=== PATIENT | female | born 1945 | race Caucasian/White ===

== ENCOUNTER 2024-05-17 10:08 | Observation (INO) | payer OTHER ==
[~2024-05-17] VITALS: Ht 175.3 cm; Wt 81.6 kg
[2024-05-17 10:13] VITALS: BP 148/85; PULSE 86; RESP 17; TEMP 97.8; O2SAT 99
[2024-05-17 11:06] LABS: BASOPHILS # (AUTO) 0.1 K/uL (0.00-0.22); BASOPHILS % (AUTO) 0.7 % (0.0-2.0); EOSINOPHILS # (AUTO) 0.1 K/uL (0-0.4); HEMATOCRIT 47.5 % (36-48); LYMPHOCYTES # (AUTO) 2.4 K/uL (2.5-16.5); LYMPHOCYTES % (AUTO) 27.6 % (20.5-51.1); MEAN CORPUSCULAR HEMOGLOBIN 31 pg (27-31); MEAN CORPUSCULAR HGB CONC 34 g/dL (33-37); MEAN CORPUSCULAR VOLUME 91.9 fL (80-94); MONOCYTES # (AUTO) 0.6 K/uL (0.8-1.0); MONOCYTES % (AUTO) 6.6 % (1.7-9.3); NEUTROPHILS # (AUTO) 5.6 K/uL (1.8-7.7); NEUTROPHILS % (AUTO) 64.1 % (42.2-75.2); PLATELET COUNT (AUTO) 225 K/uL (140-450); RED BLOOD CELL COUNT(AUTO) 5.17 MIL/uL (4.20-5.40); RED CELL DISTRIBUTION WIDTH 14.3 % (11.6-13.7); WHITE BLOOD COUNT (AUTO) 8.7 K/uL (4.8-10.8)
[2024-05-17] MEDS: NACL 0.9% 1,000 ML IV SCH ×2 (11:12→16:45)
[2024-05-17] MEDS: LEVOFLOXACIN 500 MG/D5W PREMIX 100 ML IV ONE (11:16)
[2024-05-17 11:23] LABS: BILIRUBIN,URINE NEGATIVE (NEGATIVE); BLOOD, URINE NEGATIVE (NEGATIVE); COLOR,URINE YELLOW (YELLOW); LEUKOCYTE ESTERASE ,URINE 1+ (NEGATIVE); NITRITE, URINE NEGATIVE (NEGATIVE); PROTEIN,URINE NEGATIVE (NEGATIVE); UGLUCOSE 3+ (NEGATIVE); UROBILINOGEN,URINE 0.2 EU/dL (0.2 - 1)
[2024-05-17 11:25] LABS: ANION GAP 14.3 (8-16); CALCIUM 9.7 mg/dL (8.5-10.1); CARBON DIOXIDE 26.8 mmol/L (21-32); CHLORIDE 99 mmol/L (98-107); GLUCOSE 143 mg/dL (74-106); POTASSIUM 4.1 mmol/L (3.5-5.1); SODIUM SERUM 136 mmol/L (136-145); UREA NITROGEN, BLOOD 24 mg/dL (7-18)
[2024-05-17 11:39] LABS: LACTIC ACID 1.7 mmol/L (0.4-2.0)
[2024-05-17 11:51] LABS: BACTERIA,URINE FEW /HPF (None Seen); RBC,URINE 0-5 /HPF (0-5)
[2024-05-17 11:52] LABS: APPEARANCE,URINE SLIGHTLY HAZY (CLEAR); SQUAMOUS EPITHELIAL CELL,UR 4-10 (MOD) /LPF (0-3 (FEW))
[2024-05-17] MEDS ORDERED: LISI1TAB PO (12:41)
[2024-05-17] MEDS ORDERED: ATOR20TA PO (12:41)
[2024-05-17] MEDS ORDERED: METF-346 PO (12:42)
[2024-05-17] MEDS ORDERED: EMPA25TA PO (12:43)
[2024-05-17] MEDS ORDERED: METO50TA99 PO (12:46)
[2024-05-17] MEDS ORDERED: ONDANSETRON 4 MG/2 ML VIAL IVP PRN (16:10)
[2024-05-17] MEDS ORDERED: MORPHINE SULFATE 2 MG/ML SYR IVP PRN (16:10)
[2024-05-17 17:42] VITALS: BP 123/74; PULSE 105; RESP 18; TEMP 98.8; O2SAT 98
[2024-05-17 17:44] VITALS: O2SAT 99
[2024-05-17 20:00] VITALS: BP 145/82; PULSE 94; RESP 18; RESP 19; TEMP 97.2; O2SAT 97; O2SAT 99
[2024-05-18] VITALS: BP 136/74; PULSE 86; RESP 16; TEMP 98.4; O2SAT 97
[2024-05-18 04:00] VITALS: BP 150/82; PULSE 85; RESP 18; TEMP 97.6; O2SAT 96
[2024-05-18] MEDS: ACETAMINOPHEN 325 MG TAB PO PRN (05:19)
[2024-05-18 06:12] LABS: BASOPHILS # (AUTO) 0.1 K/uL (0.00-0.22); EOSINOPHILS # (AUTO) 0.1 K/uL (0-0.4); EOSINOPHILS % (AUTO) 1.2 % (0.0-4.0); HEMATOCRIT 43.2 % (36-48); HEMOGLOBIN 14.6 g/dL (12.0-16.0); LYMPHOCYTES # (AUTO) 1.7 K/uL (2.5-16.5); LYMPHOCYTES % (AUTO) 24.2 % (20.5-51.1); MEAN CORPUSCULAR HEMOGLOBIN 31 pg (27-31); MEAN CORPUSCULAR HGB CONC 34 g/dL (33-37); MEAN CORPUSCULAR VOLUME 91.8 fL (80-94); MONOCYTES # (AUTO) 0.6 K/uL (0.8-1.0); MONOCYTES % (AUTO) 8.6 % (1.7-9.3); NEUTROPHILS # (AUTO) 4.7 K/uL (1.8-7.7); PLATELET COUNT (AUTO) 203 K/uL (140-450); RED BLOOD CELL COUNT(AUTO) 4.71 MIL/uL (4.20-5.40); RED CELL DISTRIBUTION WIDTH 14.1 % (11.6-13.7); WHITE BLOOD COUNT (AUTO) 7.2 K/uL (4.8-10.8)
[2024-05-18 06:40] LABS: ANION GAP 10.3 (8-16); CARBON DIOXIDE 26.3 mmol/L (21-32); CHLORIDE 106 mmol/L (98-107); CREATININE 0.8 mg/dL (0.6-1.3); GLUCOSE 131 mg/dL (74-106); POTASSIUM 3.6 mmol/L (3.5-5.1); SODIUM SERUM 139 mmol/L (136-145); UREA NITROGEN, BLOOD 15 mg/dL (7-18)
[2024-05-18 08:00] VITALS: BP 130/83; PULSE 90; RESP 18; TEMP 98.2; O2SAT 97
[2024-05-18] MEDS: CIPROFLOXACIN 400 MG/200ML-D5W 200 ML IV SCH (09:05)
[2024-05-18] MEDS: MAG SULF 2000 MG/WATER PREMIX 50 ML IV SCH (09:06)
[2024-05-18] MEDS ORDERED: CIPR500T4 PO (10:36)
[2024-05-18 10:38] VITALS: BP 130/83; PULSE 90; RESP 18; TEMP 98.2
[2024-05-18 12:00] VITALS: BP 130/83; PULSE 90; RESP 18; TEMP 98.2; O2SAT 97
== END 2024-05-18 12:55 | disposition home or self-care (01) ==
LOC: MED 10:08 → MMU 16:13
PROVIDERS: ADMIT Hospitalist; ATTEND Hospitalist
DX: N39.0 Urinary tract infection, site not specified (principal); I10 Essential (primary) hypertension; E11.9 Type 2 diabetes mellitus without complications; Z88.0 Allergy status to penicillin; Z79.899 Other long term (current) drug therapy; Z88.8 Allergy status to other drugs, medicaments and biological substances
CPT/HCPCS: 36415; 71045; 80048; 81001; 82948; 83605; 83735; 83880; 84484; 85025; 87040; 87081; 87086; 93005; 96361; 96365; 96366; 96367; 99285; G0378; J0744; J1956; J3475